=== PATIENT | male | born 1975 | race Caucasian/White ===

== ENCOUNTER 2022-03-16 18:51 | Emergency (ER) | payer BC ==
--- NOTE | 2022-03-16 19:54 | ERPHSYRPT ---
- History of Present Illness Time Seen by Provider: 03/16/22 19:25 Source: patient Exam Limitations: no limitations Patient Subjective Stated Complaint: pt states he was using the lawnmower and he states the handle hit his thumb of his left hand and the handle of the lawnmower somehow cut his thumb. Triage Nursing Assessment: pt states his pain is 6/10 in l thumb Physician History: 46 years old right-handed dominant male up-to-date with tetanus presented in the ER with injury to left distal thumb involving the nail when he tried to pull start his lawnmower and accidentally hit back on his thumb causing laceration in the middle of the nail. Complaining of moderate intensity sharp pain with movements with slow oozing of blood. Intact range of motion at distal interphalangeal joint but loss of sensation at the tip of thumb. No injury anywhere else. Occurred: just prior to arrival Method of Injury: direct blow Quality: sharpness Severity of Pain-Max: moderate Severity of Pain-Current: moderate Extremities Pain Location: thumb: left Modifying Factors: Improves With: immobilization. Worsens With: movement Associated Symptoms: none Allergies/Adverse Reactions: No Known Drug Allergies Allergy (Verified 03/16/22 19:24) Hx Tetanus, Diphtheria Vaccination/Date Given: Yes (2014) Hx Influenza Vaccination/Date Given: No Hx Pneumococcal Vaccination/Date Given: No Travel Risk - International Travel Have you traveled outside of the country in past 3 weeks: No - Coronavirus Screening Are you exhibiting any of the following symptoms?: No Close contact with a COVID-19 positive Pt in past 14-21 Days: No - Vaccine Status Have you recieved a Covid-19 vaccination: No - Review of Systems Constitutional: No Symptoms Ears, Nose, & Throat: No Symptoms Respiratory: No Symptoms Cardiac: No Symptoms Abdominal/Gastrointestinal: No Symptoms Genitourinary Symptoms: No Symptoms Musculoskeletal: Injury Skin: No Symptoms Neurological: No Symptoms Endocrine: No Symptoms Hematologic/Lymphatic: No Symptoms Immunological/Allergic: No Symptoms - Past Medical History Pertinent Past Medical History: Yes Cardiac History: High Cholesterol, Hypertension Endocrine Medical History: Diabetes Type II - Past Surgical History Past Surgical History: Yes Other Surgical History: ingrown toenail. dog bites at 4 years old - Social History Smoking Status: Never smoker Exposure to second hand smoke: No Drug Use: none Patient Lives Alone: No - Nursing Vital Signs Nursing Vital Signs: Initial Vital Signs Temperature 98.7 F 03/16/22 19:15 Pulse Rate 72 03/16/22 19:15 Respiratory Rate 18 03/16/22 19:15 Blood Pressure 182/118 03/16/22 19:15 O2 Sat by Pulse Oximetry 96 03/16/22 19:15 Pain Scale Pain Intensity 6 - Physical Exam General Appearance: no apparent distress, alert Neck Exam: normal inspection, full range of motion Cardiovascular/Respiratory Exam: normal breath sounds, regular rate/rhythm Wrist Exam: normal inspection, non-tender, no evidence of injury, normal ROM Hand Exam: laceration (2.5 cm laceration across the middle of left thumbnail with extension into the lateral side with slow oozing. Distal cap refill greater than 3 seconds. Intact range of motion at distal interphalangeal joint. Loss of sensation of fine and crude touch in the distal tip), soft tissue tenderness Neuro/Tendon Exam: normal motor functions, normal tendon functions, No normal sensation (Left distal thumb tip) Mental Status Exam: alert, oriented x 3, cooperative Skin Exam: normal color SpO2 Interpretation: normal SpO2: 96 O2 Delivery: Room Air Procedures - Laceration/Wound Repair Left Dorsal Finger Time of Procedure: 19:52 Wound Location: Left, hand Wound Length (cm): 2.5 Wound's Depth, Shape: into muscle, irregular Wound Explored: clean Irrigated: Yes Hibiclens Prep: Yes Anesthesia: 1% Lidocaine Volume Anesthetic (ccs): 5 Wound Repaired With: sutures Suture Size/Type: 4-0, nylon Number of Sutures: 2 Sterile Dressing Applied?: Yes Progress: 03/16/22 19:53 Bacitracin with bulky dressing applied Ordered Tests: Active Orders 24 hr Category Date Time Status FINGER(S) Stat Exams 03/16/22 20:00 Taken Medication Summary Discontinued Medications Generic Name Dose Route Start Last Admin Trade Name Freq PRN Reason Stop Dose Admin Hydrocodone Bitart/Acetaminophen 2 tab 03/16/22 20:36 Hydrocodone/Apap 5/325 Mg Tablet PO 03/16/22 20:37 SENT HOME W/ PATIENT ONE Cephalexin HCl 500 mg 03/16/22 20:07 03/16/22 20:10 Cephalexin Mh500 Mg Capsule PO 03/16/22 20:08 500 mg STAT ONE Administration Cephalexin HCl Confirm 03/16/22 20:08 Cephalexin Mh500 Mg Capsule Administered 03/16/22 20:09 Dose 500 mg .ROUTE .STK-MED ONE - Progress Progress: improved, re-examined Progress Note: 03/16/22 20:33 46 years old is evaluated for thumb laceration. Patient has comminuted displaced fracture of the tuft/distal phalanx. We will treat as an open fracture, given antibiotics. Discussed with Dr. Salazar hand surgery, he has seen x-rays and picture of the wound per patient permission, recommended closure on the lateral and only, dressing, continue with antibiotics and patient would be evaluated tomorrow at 1:30 PM in his clinic as patient needs surgical intervention. Plan discussed with patient to understand and agrees with it. Laceration is repaired. We will give him pain medication for symptomatic relief and will continue with Keflex. Counseled pt/family regarding: diagnosis, need for follow-up - Departure Departure Disposition: Home Clinical Impression: Thumb laceration Qualifiers: Encounter type: initial encounter Damage to nail status: with damage Foreign body presence: without foreign body Laterality: left Qualified Code(s): S61.112A - Laceration without foreign body of left thumb with damage to nail, initial encounter Thumb fracture Qualifiers: Encounter type: initial encounter Fracture type: open Phalanx: distal Fracture alignment: displaced Laterality: left Qualified Code(s): S62.522B - Displaced fracture of distal phalanx of left thumb, initial encounter for open fracture Condition: Stable Critical Care Time: No Referrals: FRANCES JOHNSON [Primary Care Provider] - Follow up/PCP as directed (Tomorrow for evaluation) JOHN SALAZAR MD [NON-STAFF PHY W/O PRIVILEGES] - Follow up/PCP as directed (Tomorrow at 1:30 PM for reevaluation) Instructions: Laceration Repair With Stitches (DC) Additional Instructions: Keep it clean, elevated, take pain medications as needed. Follow-up with hand surgery for reevaluation tomorrow at 1:30 PM as discussed. Return to ER for increasing swelling pain discharge/fever chills, black discoloration of the tip. Prescriptions: Hydrocodone/Acetaminophen [Hydrocodone-Acetamin 5-325 mg] 1 tab PO Q6HPRN PRN 3 Days #12 tablet MDD 4 PRN Reason: Pain Cephalexin Mh 500 mg [Keflex 500 mg] 500 mg PO TID #21 cap
[2022-03-16] MEDS ORDERED: KEFLEX 500 MG PO ONE (20:07)
[2022-03-16] MEDS ORDERED: KEFLEX 500 MG ONE (20:08)
[2022-03-16] MEDS ORDERED: NORCO 5/325 MG PO ONE (20:36)
[2022-03-16] MEDS ORDERED: BACIGUENT PACKET ONE (20:47)
[2022-03-16] MEDS ORDERED: NORCO 5/325 MG ONE (20:57)
[2022-03-16 21:07] VITALS: BP 166/107; PULSE 100; O2SAT 97
--- NOTE | 2022-03-17 08:38 | XRAY ---
Indication: Pain and bleeding following injury. Comparison: None 3 view left thumb demonstrates displaced comminuted tuft fracture with soft tissue swelling. No other bony, articular, or soft tissue abnormalities.
== END 2022-03-16 21:07 | disposition home or self-care (01) ==
LOC: ED 18:51
DX: S62.522B Displaced fracture of distal phalanx of left thumb, initial encounter for open fracture (principal); W20.8XXA Other cause of strike by thrown, projected or falling object, initial encounter; Y93.H2 Activity, gardening and landscaping; M79.645 Pain in left finger(s); E78.5 Hyperlipidemia, unspecified; I10 Essential (primary) hypertension; E11.9 Type 2 diabetes mellitus without complications; Z28.310 Unvaccinated for COVID-19; Z79.891 Long term (current) use of opiate analgesic
CPT/HCPCS: 12001; 73140; 99282; A9270-GY

== ENCOUNTER 2022-09-02 02:29 | Emergency (ER) | payer BC ==
[2022-09-02] MEDS ORDERED: Sodium Chloride 0.9% 1000 ML 1,000 ML IV STA (03:11)
[2022-09-02] MEDS ORDERED: Zofran 4 MG/2 ML VIAL IV ONE (03:11)
[2022-09-02] MEDS ORDERED: Hydromorphone 1 mg/ml Injection IV ONE (03:11)
[2022-09-02 03:23] LABS: Absolute Neutrophil Ct (ANC) 8.91 x10^3/uL (1.4-6.9); BASOPHIL % 0.3 % (0.0-0.4); Basophil (Absolute #) 0.03 x10^3/uL (0-0.4); Eosinophil % 0.8 % (0.00-5.0); Eosinophil (Absolute #) 0.09 x10^3/uL (0-0.5); Hematocrit 42.7 % (42-50); Hemoglobin 13.7 g/dL (12.5-18.0); IMMATURE GRAN # 0.04 x10^3u/L (0.00-0.03); IMMATURE GRAN % 0.3 % (0.00-0.4); Lymphocyte (Absolute #) 1.96 x10^3/uL (1.0-4.6); Lymphocytes % 16.8 % (24.0-44.0); Mean Cell Volume 83.9 fL (78-100); Mean Corpuscular Hemoglobin 26.9 pg (26-32); Mean Corpuscular Hgb Concent. 32.1 g/dL (32-36); Mean Platelet Volume 9.8 fL (7.5-11.0); Monocyte (Absolute #) 0.67 x10^3/uL (0.0-1.3); Monocytes % 5.7 % (0.0-12.0); Neutrophil % 76.1 % (36.0-66.0); Platelet Count 263 x10^3/uL (150-450); Red Blood Count 5.09 x10^6/uL (4.1-5.6); Red Cell Distribution Width 12.9 % (11.5-14.0); White Blood Count 11.7 x10^3/uL (4.0-10.5)
--- NOTE | 2022-09-02 03:23 | ERPHSYRPT ---
- History of Present Illness Historian: patient, family Exam Limitations: no limitations Patient Subjective Stated Complaint: pt states " I started having intense abd pain at work that came all the sudden." Triage Nursing Assessment: pt ambulatory to bed by self, alert and oriented x3, pt c/o of intense intermittent diffuse abd pain that started 4 hrs ago, pt denies n/v/d, pt afebrile, skin cold and clammy, last bowel movement was twice yesterday, pt took imodium, tylenol and tums to help with the pain Timing/Duration: today Activities at Onset: none Quality: cramping Abdominal Pain Onset Location: generalized abdomen Pain Radiation: no radiation Severity of Pain-Max: moderate Severity of Pain-Current: mild (Moderate) Modifying Factors: Improves With: nothing Associated Symptoms: loss of appetite, No nausea, No vomiting Previous symptoms: same symptoms as today (In 2013), no recent treatment Hx Tetanus, Diphtheria Vaccination/Date Given: Yes Hx Influenza Vaccination/Date Given: No Hx Pneumococcal Vaccination/Date Given: No Immunizations Up to Date: Yes <SERENITY ÁLVAREZ - Last Filed: 09/02/22 06:39> <ROQUE TONEY - Last Filed: 09/02/22 10:36> - History of Present Illness Time Seen by Provider: 09/02/22 03:05 Physician History: This is a morbidly obese 47-year-old patient who has had no prior abdominal surg bisi and presents with generalized abdominal pain that feels results pressure and cramping pain. Patient has not had any vomiting or diarrhea. Patient was at work at the [employer] when he began having this sudden onset of pain. Patient had just eaten a beef Manhattan sandwich and had a carbonated beverage. Patient's had the same type of sandwich at home and she has had no symptoms. Symptoms occurred approximately 4 hours ago. Patient has not had any chest pain or shortness of breath. The pain comes in waves. Patient has a history of hyperlipidemia, hypertension, obesity, diabetes type 2. Patient states he had something similar to this in 2013 and he was diagnosed with flu. Despite the use of Tylenol, Tums and Imodium, his symptoms have not improved. (SERENITY ÁLVAREZ) Allergies/Adverse Reactions: No Known Drug Allergies Allergy (Verified 09/02/22 02:51) Home Medications: Fenofibrate,Micronized 145 mg* [Tricor 145 MG] 145 mg PO DAILY 09/02/22 [History] Metoprolol Succinate [Toprol Xl] 100 mg PO DAILY 09/02/22 [History] Rosuvastatin Calcium 40 mg PO 09/02/22 [History] Travel Risk - International Travel Have you traveled outside of the country in past 3 weeks: No - Coronavirus Screening Are you exhibiting any of the following symptoms?: No Close contact with a COVID-19 positive Pt in past 14-21 Days: No - Vaccine Status Have you recieved a Covid-19 vaccination: No <SERENITY ÁLVAREZ - Last Filed: 09/02/22 06:39> - Review of Systems Constitutional: No Symptoms Eyes: No Symptoms Ears, Nose, & Throat: No Symptoms Respiratory: No Symptoms Cardiac: No Symptoms Abdominal/Gastrointestinal: Abdominal Pain, No Nausea, No Vomiting, No Diarrhea, No Constipation Genitourinary Symptoms: No Symptoms Musculoskeletal: No Symptoms Skin: No Symptoms Neurological: No Symptoms Psychological: No Symptoms Endocrine: No Symptoms Hematologic/Lymphatic: No Symptoms Immunological/Allergic: No Symptoms All Other Systems: Reviewed and Negative <SERENITY ÁLVAREZ - Last Filed: 09/02/22 06:39> - Past Medical History Pertinent Past Medical History: Yes Neurological History: No Pertinent History ENT History: No Pertinent History Cardiac History: High Cholesterol, Hypertension Respiratory History: No Pertinent History Endocrine Medical History: Diabetes Type II Musculoskeletal History: No Pertinent History GI Medical History: No Pertinent History History: No Pertinent History Psycho-Social History: No Pertinent History Male Reproductive Disorders: No Pertinent History - Past Surgical History Past Surgical History: Yes Neuro Surgical History: No Pertinent History Cardiac: No Pertinent History Respiratory: No Pertinent History Gastrointestinal: No Pertinent History Genitourinary: No Pertinent History Musculoskeletal: No Pertinent History Male Surgical History: No Pertinent History Other Surgical History: ingrown toenail. dog bites at 4 years old - Social History Smoking Status: Never smoker Exposure to second hand smoke: No Drug Use: none Patient Lives Alone: No <SERENITY ÁLVAREZ - Last Filed: 09/02/22 06:39> - Physical Exam General Appearance: mild distress, alert, anxiety, obese Eye Exam: PERRL/EOMI, eyes nml inspection Ears, Nose, Throat Exam: normal ENT inspection, moist mucous membranes Neck Exam: normal inspection, non-tender, supple, full range of motion Respiratory Exam: normal breath sounds, lungs clear, airway intact, No chest tenderness, No respiratory distress Cardiovascular Exam: regular rate/rhythm, normal heart sounds, normal peripheral pulses Gastrointestinal/Abdomen Exam: soft, normal bowel sounds, No tenderness Rectal Exam: not done Back Exam: normal inspection, normal range of motion, No CVA tenderness, No vertebral tenderness Extremity Exam: normal inspection, normal range of motion, pelvis stable Neurologic Exam: alert, oriented x 3, cooperative, 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, normal mood/affect, nml cerebellar function, nml station & gait, sensation nml Skin Exam: normal color, warm, dry Lymphatic Exam: No adenopathy SpO2 Interpretation: normal SpO2: 97 O2 Delivery: Room Air <SERENITY ÁLVAREZ - Last Filed: 09/02/22 06:39> - Nursing Vital Signs Nursing Vital Signs: Initial Vital Signs Temperature 97.2 F 09/02/22 02:53 Pulse Rate 67 09/02/22 02:53 Respiratory Rate 18 09/02/22 02:53 Blood Pressure 133/81 09/02/22 02:53 O2 Sat by Pulse Oximetry 97 09/02/22 02:53 Pain Scale Pain Intensity 1 - Course Nursing assessment & vital signs reviewed: Yes <SERENITY ÁLVAREZ - Last Filed: 09/02/22 06:39> - CT Exams Abdomen/Pelvis CT Interpretation: Tele-radiologist Report (Small bowel loops, mild fluid distended with fluid leveling distal jejunal/proximal ileal wall thickening favoring enteritis. Diverticulosis nephrolithiasis atherosclerotic disease ri ght renal cyst small left fatty inguinal hernia) <ROQUE TONEY - Last Filed: 09/02/22 10:36> Ordered Tests: Active Orders 24 hr Category Date Time Status IV Insertion STAT Care 09/02/22 03:11 Active ABDOMEN AND PELVIS W CONTRAST [CT] Stat Exams 09/02/22 06:12 Completed ABDOMEN AND PELVIS W/0 CONTRAS [CT] Stat Exams 09/02/22 03:12 Completed AMYLASE Stat Lab 09/02/22 03:15 Completed CBC W DIFF Stat Lab 09/02/22 03:11 Completed CMP Stat Lab 09/02/22 03:15 Completed LIPASE Stat Lab 09/02/22 03:15 Completed Medication Summary Discontinued Medications Generic Name Dose Route Start Last Admin Trade Name Job PRN Reason Stop Dose Admin Hydromorphone HCl 1 mg 09/02/22 03:11 09/02/22 03:28 Hydromorphone 1 Mg/1ml Inj 1 Mg/Ml Syringe IV 09/02/22 03:12 1 mg STAT ONE Administration Hydromorphone HCl Confirm 09/02/22 03:28 Hydromorphone 1 Mg/1ml Inj 1 Mg/Ml Syringe Administered 09/02/22 03:29 Dose 1 mg .ROUTE .STK-MED ONE Sodium Chloride 1,000 mls @ 999 mls/hr 09/02/22 03:11 09/02/22 06:02 Sodium Chloride 0.9% 1000 Ml IV 09/02/22 04:11 Infused .Q1H1M STA Infusion Sodium Chloride Confirm 09/02/22 03:41 Sodium Chloride 0.9% 1000 Ml Administered 09/02/22 03:42 Dose 1,000 mls @ ud .ROUTE .STK-MED ONE Morphine Sulfate 4 mg 09/02/22 04:05 09/02/22 04:13 Morphine Sulfate 4 Mg/Ml Injection IV 09/02/22 04:06 4 mg STAT ONE Administration Morphine Sulfate Confirm 09/02/22 04:13 Morphine Sulfate 4 Mg/Ml Injection Administered 09/02/22 04:14 Dose 4 mg .ROUTE .STK-MED ONE Ondansetron HCl 4 mg 09/02/22 03:11 09/02/22 03:29 Ondansetron Hcl 4 Mg/2 Ml Vial IV 09/02/22 03:12 4 mg STAT ONE Administration Ondansetron HCl Confirm 09/02/22 03:28 Ondansetron Hcl 4 Mg/2 Ml Vial Administered 09/02/22 03:29 Dose 4 mg .ROUTE .STK-MED ONE Lab/Rad Data: Laboratory Result Diagrams 09/02/22 03:11 09/02/22 03:15 Laboratory Results 09/02/22 09/02/22 09/02/22 Range/Units 06:02 03:15 03:11 WBC 11.7 H (4.0-10.5) x10^3/uL RBC 5.09 (4.1-5.6) x10^6/uL Hgb 13.7 (12.5-18.0) g/dL Hct 42.7 (42-50) % MCV 83.9 (78-100) fL MCH 26.9 (26-32) pg MCHC 32.1 (32-36) g/dL RDW 12.9 (11.5-14.0) % Plt Count 263 (150-450) x10^3/uL MPV 9.8 (7.5-11.0) fL Gran % 76.1 H (36.0-66.0) % Immature Gran % (Auto) 0.3 (0.00-0.4) % Nucleat RBC Rel Count 0.0 (0.00-0.1) % Eos # (Auto) 0.09 (0-0.5) x10^3/uL Immature Gran # (Auto) 0.04 H (0.00-0.03) x10^3u/L Absolute Lymphs (auto) 1.96 (1.0-4.6) x10^3/uL Absolute Monos (auto) 0.67 (0.0-1.3) x10^3/uL Absolute Nucleated RBC 0.00 (0.00-0.01) x10^3u/L Lymphocytes % 16.8 L (24.0-44.0) % Monocytes % 5.7 (0.0-12.0) % Eosinophils % 0.8 (0.00-5.0) % Basophils % 0.3 (0.0-0.4) % Absolute Granulocytes 8.91 H (1.4-6.9) x10^3/uL Basophils # 0.03 (0-0.4) x10^3/uL Sodium 132 L (137-145) mmol/L Potassium 4.3 (3.5-5.1) mmol/L Chloride 98 (98-107) mmol/L Carbon Dioxide 26 (22-30) mmol/L Anion Gap 12.3 (5-15) MEQ/L BUN 21 H (9-20) mg/dL Creatinine 1.30 H (0.66-1.25) mg/dL Estimated GFR > 60.0 ML/MIN Glucose 266 H (74-106) mg/dL Calcium 9.4 (8.4-10.2) mg/dL Total Bilirubin 0.40 (0.2-1.3) mg/dL AST 21 (17-59) U/L ALT 24 (0-50) U/L Alkaline Phosphatase 61 (38-126) U/L Serum Total Protein 7.5 (6.3-8.2) g/dL Albumin 4.6 (3.5-5.0) g/dL Amylase 44 (30-110) U/L Lipase 64 (23-300) U/L Urine Color YELLOW (YELLOW) Urine Appearance CLEAR (CLEAR) Urine pH 7.0 (5-6) Ur Specific [place] 1.020 (1.005-1.025) POC Urine Protein Conf 30 A (Negative) Urine Ketones TRACE A (NEGATIVE) Urine Nitrite NEGATIVE (NEGATIVE) Urine Bilirubin NEGATIVE (NEGATIVE) Urine Urobilinogen 0.2 (0-1) mg/dL Urine Leukocytes NEGATIVE (NEGATIVE) U Hyaline Cast (Auto) NONE SEEN (0-2) /LPF Urine RBC NEGATIVE (0-5) Bisi/ul Urine Microscopic RBC 0-2 (0-5) /HPF Urine Microscopic WBC 3-5 (0-5) /HPF Ur Epithelial Cells None Seen (None Seen) /HPF Urine Bacteria None Seen (None Seen) /HPF Ur Culture Indicated? NO Urine Glucose >=1000 A (NEGATIVE) mg/dL - Progress Progress: improved, pain not gone completely Counseled pt/family regarding: lab results, diagnosis, need for follow-up, rad results <SERENITY ÁLVAREZ - Last Filed: 09/02/22 06:39> <ROQUE TONEY - Last Filed: 09/02/22 10:36> - Progress Progress Note: 09/02/22 06:09 Medical decision making: The patient stated that the morphine helped his pain to a greater degree than the Dilaudid. The CAT scan of the abdomen and pelvis without contrast on this patient shows small bowel fluid distention in the mid abdomen with a discrete transition point but rather progressing tapering could be related to ileus however developing obstruction cannot be completely excluded. There are also nonobstructing renal stones. The best course of action this patient is to repeat the CAT scan of the abdomen pelvis with IV and oral contrast to determine if there is actually a transition point or developing small bowel obstruction. We will use the Gastrografin which can be both di agnostic and therapeutic. This was discussed with the patient. He agrees with this plan. The results of the test would not be back till after I leave at 7 AM. I will be transferring care to Dr. Tonye at shift change approximately 7 AM (SERENITY ÁLVAREZ) Patient endorsed to Dr. Toney at approximately [address] Toney advised to follow-up on pending CT abdomen pelvis with contrast. CT scan reveals dilated small bowel loop with fluid leveling. Distal jejunal/proximal ileal wall thickening favoring enteritis. There is some nephrolithiasis arteriosclerotic changes right renal cyst small fatty left inguinal hernia. Diverticulosis observed. Patient resting comfortably. Some hyponatremia. IV fluids infused. IV morphine and Dilaudid administered fo r pain control. Mild acute renal injury observed on today's laboratory work-up. However patient did receive normal saline to address this issue. Slight leukocytosis however no obvious nidus of active infection observed. No indication for antibiotics at this time. Some glucosuria and hyperglycemia observed. However this was addressed with IV hydration as well. 09/02/22 10:18 Outpatient treatment will consist mostly of clear liquids for the next 3 days. We expect symptoms to gradually improve. We discussed diet that entails clear liquids and progressive diet as symptoms improve. Patient agrees to follow-up with his primary care doctor within 48 hours for evaluation. Patient unders tands importance of follow-up as he will require repeat labs to reassess normalization of kidney function hyponatremia and symptomology. Portions of this note were created with voice recognition technology. There may be grammatical, spelling, punctuation or sound alike errors 09/02/22 10:35 (ROQUE TONEY) - Departure Departure Disposition: Home Critical Care Time: No <SERENITY ÁLVAREZ - Last Filed: 09/02/22 06:39> <ROQUE TONEY - Last Filed: 09/02/22 10:36> - Departure Clinical Impression: Abdominal pain, Enteritis, Nephrolithiasis, Atherosclerotic cardiovascular disease, Renal cyst, right, Small fatty left inguinal hernia, Diverticulosis, Hyponatremia, Acute renal injury, Glucosuria, Hyperglycemia Condition: Stable Referrals: FRANCES JOHNSON [Primary Care Provider] - Follow up/PCP as directed Additional Instructions: Discharge/Care Plan DINORAH GIL was seen on 09/02/22 in the Emergency Room. The patient was counseled regarding Diagnosis,Lab results, Imaging studies, need for follow up and when to return to the Emergency Room. Prescriptions given: Discharge Note I have spoken with the patient and/or caregivers. I have explained the patient's condition, diagnosis and treatment plan based on the information available to me at this time. I have answered the patient's and/or caregiver's questions and addressed any concerns. The patient and/or caregivers have as good understanding of the patient's diagnosis, condition and treatment plan as can be expected at this point. The vital signs have been stable. The patient's condition is stable and appropriate for discharge from the emergency department. The patient will pursue further outpatient evaluation with the primary care physician or other designated or consulting physician as outlined in the discharge instructions. The patient and/or caregivers are agreeable to this plan of care and follow-up instructions have been explained in detail. The patient and/or caregivers have received these instruction. The patient/and or caregivers are aware that any significant change in condition or worsening of symptoms should prompt an immediate return to this or the closest emergency department or call 911.
[2022-09-02] MEDS ORDERED: Hydromorphone 1 mg/ml Injection ONE (03:28)
[2022-09-02] MEDS ORDERED: Zofran 4 MG/2 ML VIAL ONE (03:28)
[2022-09-02 03:36] LABS: ALBUMIN 4.6 g/dL (3.5-5.0); ALKALINE PHOSPHATASE 61 U/L (38-126); AMYLASE 44 U/L (30-110); ANION GAP 12.3 MEQ/L (5-15); BLOOD UREA NITROGEN 21 mg/dL (9-20); CHLORIDE 98 mmol/L (98-107); Calcium 9.4 mg/dL (8.4-10.2); Carbon Dioxide 26 mmol/L (22-30); EST GLOMERULAR FILTRATION RATE > 60.0 ML/MIN; Glucose 266 mg/dL (74-106); LIPASE 64 U/L (23-300); Potassium 4.3 mmol/L (3.5-5.1); SGOT/AST 21 U/L (17-59); SGPT/ALT 24 U/L (0-50); SODIUM 132 mmol/L (137-145); Total Protein 7.5 g/dL (6.3-8.2)
[2022-09-02] MEDS ORDERED: Sodium Chloride 0.9% 1000 ML 1,000 ML ONE (03:41)
[2022-09-02] MEDS ORDERED: MORPHINE SULFATE 4 MG INJ IV ONE (04:05)
[2022-09-02] MEDS ORDERED: MORPHINE SULFATE 4 MG INJ ONE (04:13)
[2022-09-02 07:36] LABS: Appearance CLEAR (CLEAR)
[2022-09-02 07:37] LABS: Bilirubin NEGATIVE (NEGATIVE); Glucose >=1000 mg/dL (NEGATIVE); Ketones TRACE (NEGATIVE); Nitrite NEGATIVE (NEGATIVE); Protein,Urine Dip 30 (Negative); RBC NEGATIVE Ery/ul (0-5); Urobilinogen 0.2 mg/dL (0-1)
[2022-09-02 07:40] LABS: Bacteria None Seen /HPF (None Seen); Epithelial Cells None Seen /HPF (None Seen); Hyaline Casts NONE SEEN /LPF (0-2); RBC 0-2 /HPF (0-5)
[2022-09-02 07:42] LABS: Urine Cultured Indicated? NO
--- NOTE | 2022-09-02 08:50 | XRAY ---
Indication: Abdomen pain. Multiple contiguous axial images obtained through the abdomen and pelvis without contrast. Comparison: August 19, 2014. Lung bases demonstrate mild dependent atelectasis. Heart not enlarged. Stomach distended with food/fluid. Also radiopacities in dependent portion of the stomach presumed ingested medication/bismuth. Small bowel loops are again mildly and uniformly fluid distended with fluid leveling throughout favoring ileus versus enteritis. Normal appendix. Minimal descending and sigmoid diverticulosis without diverticulitis. Again multiple nonobstructing bilateral renal punctate calculi more than before. Liver again demonstrates mild diffuse fatty hepatomegaly measuring 22 cm. Remaining liver, gallbladder, pancreas, spleen, adrenal glands, kidneys, ureters, and bladder are unremarkable for noncontrast exam. Minimal aortoiliac calcifications without AAA. Osseous structures intact. Stable small fatty left inguinal hernia. Impression: 1. Again mild small bowel ileus versus enteritis. 2. Chronic findings including nonobstructing bilateral renal micro-calculi, fatty hepatomegaly, fatty left inguinal hernia, and arteriosclerotic disease. Comment: Preliminary interpretation made by [facility]. No critical discrepancy.
--- NOTE | 2022-09-02 09:12 | XRAY ---
Indication: Abdomen pain with leukocytosis. Small bowel ileus versus enteritis on CT without contrast performed earlier in the day. Multiple contiguous images obtained through the abdomen and pelvis using 80 cc Isovue 370 contrast. Enteric contrast also used. Lung bases again demonstrate dependent atelectasis. Heart not enlarged. Stomach is now markedly distended with enteric contrast. Small bowel loops again mildly fluid distended with fluid leveling and now distal jejunal/proximal ileal wall thickening and enhancement favoring enteritis. No focal bowel dilatation/obstruction. Again normal appendix and descending/sigmoid diverticulosis. No free fluid/air. Both kidneys enhance and excrete with new 1 cm right renal cortical cyst not seen on previous noncontrast exam. Again fatty hepatomegaly, nonobstructing bilateral renal micro-calculi, small fatty left inguinal hernia, and minimal aortoiliac calcifications. No AAA or pathologic retroperitoneal lymphadenopathy. Impression: 1. Again fluid distended small bowel loops with now mild wall thickening/enhancement favoring enteritis. 2. Incidental new finding small right renal cyst. 3. Stable chronic findings including colonic diverticulosis, nonobstructing bilateral renal micro-calculi, fatty hepatomegaly, fatty left inguinal hernia, and arteriosclerotic disease.
[2022-09-02 10:19] VITALS: BP 127/76; PULSE 82; O2SAT 93
== END 2022-09-02 10:58 | disposition home or self-care (01) ==
LOC: ED 02:29
DX: R10.84 Generalized abdominal pain (principal); K52.9 Noninfective gastroenteritis and colitis, unspecified; N20.0 Calculus of kidney; I25.10 Atherosclerotic heart disease of native coronary artery without angina pectoris; N28.1 Cyst of kidney, acquired; K40.90 Unilateral inguinal hernia, without obstruction or gangrene, not specified as recurrent; K57.90 Diverticulosis of intestine, part unspecified, without perforation or abscess without bleeding; E87.1 Hypo-osmolality and hyponatremia; N17.9 Acute kidney failure, unspecified; R81 Glycosuria; E11.65 Type 2 diabetes mellitus with hyperglycemia; E78.5 Hyperlipidemia, unspecified; I10 Essential (primary) hypertension; Z79.899 Other long term (current) drug therapy; Z28.310 Unvaccinated for COVID-19
CPT/HCPCS: 36000; 36415; 74176; 74177; 80053; 81015; 82150; 83690; 85025; 96360; 96374; 96375; 99284; J1170; J2270; J2405